=== PATIENT | male | born 1930 ===

== ENCOUNTER 2016-07-27 21:20 | Emergency (ER) | payer MEDICARE ==
--- NOTE | 2016-07-27 21:51 | EDM.PDOC ---
ED HPI GENERAL MEDICAL PROBLEM - General Stated Complaint: syncope episode Time Seen by Provider: 07/27/16 21:25 Source of Information: Reports: Patient History Limitations: Reports: No Limitations - History of Present Illness INITIAL COMMENTS - FREE TEXT/NARRATIVE: According to patient he had not eaten all day and and was fishing and towards the end of the day had [place] and potatoes. As soon as he finished his meals , he felt lightheaded and his head reeled backwards when he was still sitting, at which point, his sons got him on to the ground and patient woke and and was alert and talking to every one around. he had no seizures or confusion. no chest pain or shortness of breath. EMS was called and when they arrived, patient was fine, so they were sent back. But family insisted him to come to emergency room for workup.Pt claims he feels fine. no weakness or tiredness. no more lightheaded or blurry of vision. Onset: Today Onset Date: 07/27/16 Onset Time: 08:00 Improves with: Reports: None Worsens with: Reports: None Associated Symptoms: Denies: Confusion, Chest Pain, Cough, Fever/Chills, Headaches, Nausea/Vomiting, Rash, Seizure, Shortness of Breath, Weakness - Related Data Allergies Allergy/AdvReac Type Severity Reaction Status Date / Time No Known Allergies Allergy Verified 07/27/16 21:47 Home Meds: Home Meds Rivaroxaban [Xarelto] 20 mg PO DAILY 07/27/16 [History] ED ROS GENERAL - Review of Systems Review Of Systems: See Below Constitutional: Denies: Fever, Chills, Weakness, Night Sweats, Diaphoresis HEENT: Denies: Rhinitis, Sinus Problem, Throat Pain, Throat Swelling Respiratory: Denies: Shortness of Breath, Wheezing, Pleuritic Chest Pain, Cough , Sputum Cardiovascular: Reports: Syncope. Denies: Chest Pain, Lightheadedness Endocrine: Denies: Fatigue GI/Abdominal: Denies: Abdominal Pain, Anorexia, Constipation, Diarrhea, Nausea, Vomiting : Denies: Dysuria, Flank Pain, Urgency, Urinary Retention Musculoskeletal: Denies: Neck Pain, Joint Pain, Joint Swelling Skin: Denies: Cyanosis, Jaundice, Erythema, Wound Neurological: Reports: Syncope. Denies: Confusion, Dizziness, Headache, Numbness, Paresthesia, Seizure, Tingling, Tremors, Weakness, Change in Speech, Gait Disturbance Psychiatric: Denies: Agitation, Anxiety, Confusion ED EXAM, GENERAL - Physical Exam Exam: See Below Exam Limited By: No Limitations General Appearance: Alert, WD/WN, No Apparent Distress Eye Exam: Bilateral Eye: EOMI, PERRL Ears: Normal External Exam, Normal Canal, Hearing Grossly Normal, Normal TMs Ear Exam: Bilateral Ear: Auricle Normal, Canal Normal, TM normal Nose: Normal Inspection, Normal Mucosa, No Blood Throat/Mouth: Normal Inspection, Normal Lips, Normal Teeth, Normal Gums, Normal Oropharynx, Normal Voice, No Airway Compromise Head: Atraumatic, Normocephalic Neck: Normal Inspection, Supple, Non-Tender, Full Range of Motion Respiratory/Chest: No Respiratory Distress, Lungs Clear, Normal Breath Sounds, No Accessory Muscle Use, Chest Non-Tender Cardiovascular: Normal Peripheral Pulses, Regular Rate, Rhythm, No Edema, No Gallop, No JVD, No Murmur, No Rub GI/Abdominal: Normal Bowel Sounds, Soft, Non-Tender, No Organomegaly, No Distention, No Abnormal Bruit, No Mass Back Exam: Normal Inspection, Full Range of Motion, NT Extremities: Normal Inspection, Normal Range of Motion, Non-Tender, Normal Capillary Refill, No Pedal Edema Neurological: Alert, Oriented, CN II-XII Intact, Normal Cognition, Normal Gait, Normal Reflexes, No Motor/Sensory Deficits Skin Exam: Warm, Intact Course - Vital Signs Text/Narrative:: Pt's vitals are stable. His clinical exam is normal. His CBC, CMP appear normal. EKG is in sinus rhythm. He has short episodes of postprandial vasovagal episodes which quickly has resolved. Could be from gastric distension after eating, or from sugars surge. But his blood sugar now in the emergency room is normal. He is asymptomatic. Pt and family reassured. Advised frequent 3-4 meals daily. If symptoms persist followup with primary care physician back home. - Orders/Labs/Meds Orders: Active Orders 24 hr Category Date Time Status EKG Documentation Completion [RC] ASDIRECTED Care 07/27/16 21:46 Active Labs: Laboratory Tests 07/27/16 07/27/16 Range/Units 21:40 21:40 WBC 8.8 (4.0-11.0) K/uL RBC 3.86 L (4.50-6.50) M/uL Hgb 11.8 L (13.0-18.0) g/dL Hct 36.0 L (40.0-54.0) % MCV 93 (76-96) fL MCH 30.6 (27.0-32.0) pg MCHC 32.8 (31.0-35.0) g/dL RDW 14.4 (11.0-16.0) % Plt Count 194 (150-400) K/uL MPV 9.4 (6.0-10.0) fL Neut % (Auto) 77.8 H (45.0-70.0) % Lymph % (Auto) 12.4 L (20.0-40.0) % [place] % (Auto) 8.0 (3.0-10.0) % Eos % (Auto) 1.5 (1.0-5.0) % Baso % (Auto) 0.3 (0.0-0.5) % Neut # (Auto) 6.81 (2.00-7.50) K/uL Lymph # (Auto) 1.09 L (1.50-4.00) K/uL [place] # (Auto) 0.70 (0.20-0.80) K/uL Eos # (Auto) 0.13 (0.04-0.40) K/uL Baso # (Auto) 0.03 (0.02-0.10) K/uL Sodium 142 (136-145) mmol/L Potassium 3.9 (3.5-5.1) mmol/L Chloride 107 (98-107) mmol/L Carbon Dioxide 27.1 (21.0-32.0) mmol/L Anion Gap 11.8 (5.0-15.0) mmol/L BUN 28 H (8-26) mg/dL Creatinine 1.40 H (0.70-1.30) mg/dL Est Cr Clr Drug Dosing 34.75 mL/min Estimated GFR (MDRD) 48 L (>60) MLS/MIN BUN/Creatinine Ratio 20.0 (6-25) Glucose 101 H (74-100) mg/dL Calcium 9.1 (8.5-10.1) mg/dL Total Bilirubin 0.4 (0.0-1.0) mg/dL AST 29 (15-37) U/L ALT 30 (12-78) U/L Alkaline Phosphatase 98 (46-116) U/L Total Protein 7.1 (6.4-8.2) g/dL Albumin 3.7 (3.4-5.0) g/dL Globulin 3.4 (2.2-4.2) g/dL Albumin/Globulin Ratio 1.1 (0.8-2.0) Departure - Departure Time of Disposition: 22:20 Disposition: Home, Self-Care 01 Condition: fair Clinical Impression: Vasovagal syncope - Discharge Information Instructions: Hypoglycemia Referrals: PCP,None [Primary Care Provider] - Additional Instructions: Pt's vitals are stable. His clinical exam is normal. His CBC, CMP appear normal. EKG is in sinus rhythm. He has short episodes of postprandial vasovagal episodes which quickly has resolved. Could be from gastric distension after eating, or from sugars surge. But his blood sugar now in the emergency room is normal. He is asymptomatic. Pt and family reassured. Advised frequent 3-4 meals daily. If symptoms persist followup with primary care physician back home. - Problem List & Annotations (1) Vasovagal syncope SNOMED Code(s): 172623995, 322648522 Code(s): R55 - SYNCOPE AND COLLAPSE Status: Acute Current Visit: Yes - Problem List Review Problem List Initiated/Reviewed/Updated: Yes - My Orders Last 24 Hours: My Active Orders 07/27/16 21:46 EKG Documentation Completion [RC] ASDIRECTED - Assessment/Plan Last 24 Hours: My Active Orders 07/27/16 21:46 EKG Documentation Completion [RC] ASDIRECTED Assessment:: Vasovagal syncope Plan: Pt's vitals are stable. His clinical exam is normal. His CBC, CMP appear normal. EKG is in sinus rhythm. He has short episodes of postprandial vasovagal episodes which quickly has resolved. Could be from gastric distension after eating, or from sugars surge. But his blood sugar now in the emergency room is normal. He is asymptomatic. Pt and family reassured. Advised frequent 3-4 meals daily. If symptoms persist followup with primary care physician back home.
== END 2016-07-27 22:10 | disposition home or self-care (01) ==
LOC: LB.ED 21:20
DX: R55 Syncope and collapse (principal); Z79.899 Other long term (current) drug therapy
CPT/HCPCS: 36415; 80053; 85025; 93005; 99283; 99284-25